=== PATIENT | male | born 1985 | race Caucasian/White ===

== ENCOUNTER 2017-02-16 18:37 | Emergency (ER) | payer OTHER ==
[~2017-02-16] VITALS: Ht 182.9 cm; Wt 76.4 kg
[~2017-02-16 18:37] MED LIST: ALBU17AE27 IH
[2017-02-16 19:35] VITALS: BP 128/67
[2017-02-17] MEDS ORDERED: ADENOSINE 3 MG/ML 2 ML VIAL IVP ONE ×2 (10:03→10:11)
== END 2017-02-16 20:20 | disposition home or self-care (01) ==
LOC: EMS 18:38
DX: S29.012A Strain of muscle and tendon of back wall of thorax, initial encounter (principal); J45.909 Unspecified asthma, uncomplicated; F17.210 Nicotine dependence, cigarettes, uncomplicated; X58.XXXA Exposure to other specified factors, initial encounter; Y93.89 Activity, other specified; Y92.89 Other specified places as the place of occurrence of the external cause; Y99.8 Other external cause status
CPT/HCPCS: 99283; J0153